=== PATIENT | male | born 2005 | race Caucasian/White ===

== ENCOUNTER 2025-03-31 14:54 | Emergency (ER) | payer OTHER, SELFPAY ==
[2025-03-31 15:01] VITALS: BP 122/58; PULSE 78; RESP 16; TEMP 36.4; O2SAT 97; BMI 32.8
--- NOTE | 2025-03-31 15:01 | ED_ITS ---
HPI - Eye Problem General Chief complaint: Eye Problems Stated complaint: Work- Object Fell Into R Eye- Pain/ Redness Time Seen by Provider: 03/31/25 16:23 History of Present Illness HPI Narrative: Patient is a 19-year-old male presents today with having question foreign object into the eye. 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 There is no gross change in vision patient washed it out still had some foreign body sensation upon arrival in the ED the symptoms seems to have improved. There is no systemic complaints. Patient did not on blood thinners. Tetanus is up-to-date. Related Data Allergies Allergy/AdvReac Type Severity Reaction Status Date / Time No Known Allergies Allergy Verified 03/31/25 15:04 Review of Systems Review of Systems: No fever no chills no systemic complaints PMFSH Past Medical History Attestation statement: The following information was validated with the patient. Social History Social History Smoked in Last 30 Days: No Use of substances other than those prescribed or required for medical reasons: No Advance Directives: No Advance Directives Information Provided: Yes Do you have a plan to hurt others: No Plan Physical Exam Vital Signs: Vital Signs: Last Vital Signs Temp 97.6 F 03/31/25 15:01 Pulse 71 03/31/25 16:26 Resp 16 03/31/25 16:26 BP 134/68 03/31/25 16:26 Pulse Ox 100 03/31/25 16:26 O2 Del Method Room Air 03/31/25 16:26 BMI result Body Mass Index 32.8 Appearance: Alert. Oriented X3. No acute distress. Eyes: Pupils equal, round and reactive to light. sclera was white. There is no corneal abrasion noted on fluorescein staining. Extraocular muscle was intact. Visual acuity was grossly intact. Upon careful examination no foreign object was found. ENT: Pharynx normal. Neck: Normal inspection. Neck supple. No lymph nodes noted. No crepitus CVS: Normal heart rate and rhythm. Pulses normal. Normal S1 and S2 Respiratory: No respiratory distress. Breath sounds normal. No Wheezing. No rales Abdomen: Soft and nontender. No rigidity. No distention. good BS x4 Skin: Skin warm and dry. Normal skin color. Normal skin turgor. Extremities: No lower extremity edema. Neurovascular intact to all extremities. No Lacerations. No Rash Neuro: Oriented X 3. No motor deficit. No sensory deficit. Moving all e xtermities. No slurred speech Course Course Course Narrative: 03/31/25 1502 DANE Tavera This is a Rapid Medical Examination (RME) performed by Ana Lakhani PA-C in triage. Full HPI, ROS, assessment and treatment plan per primary provider in the Main ED. Hx: 19 yo M here for eval of right eye FB. 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 Follow up mental drop into his eye. Attempted to irrigate the eye. Now having irritation. No vision changes. Tetanus up-to-date Plan: Visual acuity, tetracaine, fluorescein eval Medications Administered Discontinued Medications Generic Name Dose Route Start Last Admin Trade Name Freq PRN Reason Stop Dose Admin Fluorescein Sodium 1 strip 03/31/25 15:04 03/31/25 16:32 Fluorescein Sodium Strip EYE-RIGHT 03/31/25 15:05 1 strip ONCE ONE Administration Tetracaine HCl 1 drop 03/31/25 15:04 03/31/25 16:32 Tetracaine Hcl/Pf 0.5% Oph Kori 4 Ml Drops EYE-RIGHT 03/31/25 15:05 1 drop ONCE ONE Administration Medical Decision Making Medical Decision Making MDM Narrative: Question foreign body sensation grossly patient vision intact no distress no metal seen. Cornea is normal there is no evidence of corneal abrasion on staining. Visual acuity is intact. Will discharge patient home close follow-up on an outpatient basis Differential Diagnosis Differential Diagnoses: The differential diagnosis associated with the presentation includes foreign body, corneal abrasion, foreign body sensation Admission/Observation Consideration of admission/observation: Escalation of care including admission/observation considered no need to stay symptoms seems to have resolved Discharge Plan Discharge Clinical Impression: Foreign body sensation, right eye Patient Disposition: Home, Self-Care Instructions: Eye Foreign Body (ED) Referrals: Dave Lambert [Physician, Ophthalmology] - 04/03/25 Print Language: [place]
[2025-03-31 16:26] VITALS: BP 134/68; PULSE 71; RESP 16; O2SAT 100
[2025-03-31] MEDS: Tetracaine HCl/PF 0.5% Oph Sol 4 ML DROPS 1 DROP EYE-RIGHT (16:32)
[2025-03-31] MEDS: Fluorescein Sodium STRIP 1 STRIP EYE-RIGHT (16:32)
[2025-03-31 17:01] VITALS: BP 134/68; PULSE 71; RESP 16; TEMP 36.7; O2SAT 100
== END 2025-03-31 17:03 | disposition home or self-care (01) ==
PROVIDERS: Emergency Provider Emergency Medicine Emergency Medical Services
DX: H57.8A1 Foreign body sensation, right eye (principal); H57.11 Ocular pain, right eye
CPT/HCPCS: 99283; 99284

== ENCOUNTER 2025-08-09 16:47 | Emergency (ER) | payer OTHER, SELFPAY ==
[2025-08-09 16:50] VITALS: BP 151/73; PULSE 89; RESP 18; TEMP 36.6; O2SAT 98; BMI 35.6
--- NOTE | 2025-08-09 16:59 | ED_ITS ---
HPI - General Adult General Chief complaint: Nausea/Vomiting/Diarrhea Stated complaint: Animal Bite Time Seen by Provider: 08/09/25 20:42 Source: patient, RN notes reviewed and old records reviewed Mode of arrival: ambulatory Limitations: no limitations History of Present Illness ED Provider: Hardy EVANS narrative: 19-year-old male with no significant past medical history presents for evaluation of ?spider bite. Patient reports that he was bit on his left mid abdomen by a spider on Thursday He did not see any spider bite him but reports seeing a spider on his bed that day He reports it was initially red and swollen on Thursday. In his not painful in his symptoms have improved dramatically pain Presents to the ER today because he would do it was under diarrhea over the last 2 days He reports feeling dizzy yesterday but this has resolved He denies any abdominal pain, fevers, chills, chest pain, shortness of breath Related Data Allergies Allergy/AdvReac Type Severity Reaction Status Date / Time No Known Allergies Allergy Verified 08/09/25 16:52 Review of Systems 2 Constitutional: Constitutional: Denies body ache(s), Denies chills, Denies fever(s), Denies frequent falls and Denies headache(s) Eyes: Eyes: Denies floaters and Denies irritation ENT: Denies vertigo, Reports dizziness and Denies headache(s) Cardiovascular: Cardiovascular: Denies chest pain and Denies dyspnea on exertion Respiratory: Respiratory: Denies cough and Denies dyspnea on exertion Gastrointestinal: Gastrointestinal: Denies abdominal pain, Denies nausea and Denies vomiting Musculoskeletal: Musculoskeletal: Denies back pain Integumentary/Breasts: Skin/Breast: Reports lesions and Denies rash Neurologic: Denies vertigo, Reports dizziness, Denies frequent falls and Denies headache(s) COUNT INCLUDES THE [facility] Social History Social History Advance Directives: No Advance Directives Information Provided: No Do you have a plan to hurt others: No Plan Physical Exam ED Vital Signs: Vital Signs - 24 hr 08/09/25 16:50 08/09/25 20:42 08/09/25 21:43 Temperature 98 F 97.9 F 97.9 F Pulse Rate 89 80 80 Respiratory Rate 18 16 16 Blood Pressure 151/73 H 139/63 139/63 Pulse Oximetry 98 100 100 Oxygen Delivery Method Room Air Room Air Room Air BMI result Body Mass Index 35.6 Const General: healthy appearing, comfortable, no acute distress, alert and awake Nutritional Appearance: well nourished Orientation/consciousness: patient oriented x3 HENMT Head: Yes normocephalic and Yes atraumatic Eyes Eyelids: Yes eyelids normal Conjunctivae: conjunctivae normal Sclerae: sclerae normal Corneas: corneas normal Pupils: Equal, round and reactive pupils present EOM: EOMs intact bilaterally Neck Neck: Yes full ROM Resp Effort & Inspection: normal respiratory effort, able to speak in complete sentences and not labored GI Other: There was a small macular lesion to the left mid abdomen, no puncture wounds, no surrounding erythema, no fluctuance or induration. Inspection: No distended Palpation (GI): Soft to palpation, not firm, nontender, no guarding and not rigid Auscultation: normoactive bowel sounds Skin General skin exam: elasticity normal Neuro General: patient oriented x3 Cranial nerves: Yes Equal, round and reactive pupils present and Yes Bilaterally intact EOM present Cognition (Neuro): normal cognition Extrem Other: Moving all extremities well without any obvious deformities Course Course Course Narrative: RME: 19 yold male presents to the ED for being bitten by a spider ( in left abdomen) patient did not see spider bite him, but saw insect on bench. Area now on abodmen has no erythema, pus discharge, or tenderness. Secondary complaint is diarrhea and feelin dizzy. Medical Decision Making Medical Decision Making [facility] Narrative: But has a healthy 19-year-old male presenting for evaluation of what he feels is a spider bite in his left mid abdomen. He did not actually witnessed any spider bite him.. This was also 5 days ago when he noticed a lesion. There was no evidence of cellulitis or abscess. The patient came in today complaining of diarrhea which was nonbloody. Denies any recent antibiotic use. His abdominal exam is benign, nontender. He has no leukocytosis or anemia. No fever he is quite well appearing. I think his diarrhea is likely related to a gastroenteritis. I do not see any indication for advanced imaging of his abdomen. The area of the lesion in his left mid abdomen does not appear consistent with cellulitis or abscess. Unclear with the lesions from but there was never any witnessed evidence of a spider biting him. He had a slight elevation of AST and ALT and I suspect this is due to a viral illness. The patient is advised to follow up with your primary doctor for repeat labs in 2-4 weeks. Return precautions were given Differential Diagnosis Differential Diagnoses: The differential diagnosis associated with the presentation includes Gastritis Colitis Viral syndrome Cellulitis Spider bite Lab Data MDM Lab Attestation statement: I reviewed the patient's lab results. As above 08/09/25 19:17 08/09/25 19:17 Labs: Lab Results 08/09/25 Range/Units 19:17 WBC 9.9 (4.8-10.8) X10*3/uL RBC 5.22 (4.60-5.80) X10*6/uL Hgb 14.7 (14.0-18.0) g/dl Hct 45.0 (42.0-52.0) % MCV 86.2 (80.0-98.0) fL MCH 28.2 (27.0-33.0) pg MCHC 32.7 (31.0-36.0) g/dl RDW 12.8 (11.0-16.0) % Plt Count 337 (160-400) X10*3/uL MPV 9.0 L (9.4-12.4) fL Immature Gran % (Auto) 0.5 H (0.0-0.4) % Neut % (Auto) 58.4 (45-73) % Lymph % (Auto) 29.9 (20-40) % Reagan % (Auto) 9.1 (2-11) % Eos % (Auto) 1.7 (0-4) % Baso % (Auto) 0.4 (0-2) % Lymph # (Auto) 3.0 (1.2-4.9) X10*3/uL Reagan # (Auto) 0.9 (0.1-1.2) X10*3/uL Eos # (Auto) 0.2 (0.0-0.4) X10*3/uL Baso # (Auto) 0.0 (0.0-0.2) X10*3/uL Abs Immat Gran (auto) 0.05 H (0.00-0.03) X10*3/uL Absolute Neuts (auto) 5.8 (2.0-8.3) x10*3/uL Absolute Nucleated RBC 0.000 (0.0-0.012) X10*3/uL Nucleated RBC % (auto) 0.0 (0.0-0.2) /100WBC Sodium 142 (135-145) mmol/L Potassium 4.4 (3.3-5.1) mmol/L Chloride 108 (96-108) mmol/L Carbon Dioxide 26 (22-29) mmol/L Anion Gap 12 (12-20) BUN 15 (9-16) mg/dL Creatinine 0.80 (0.5-1.4) mg/dL Estim Creat Clear Calc 175.4 Estimated GFR > 60 Random Glucose 93 (60-115) mg/dL Calcium 10.4 H (8.4-10.2) mg/dL Total Bilirubin 0.6 (0.0-1.0) mg/dL AST 64 H (5-37) U/L ALT 68 H (0-40) U/L Alkaline Phosphatase 75 (39-117) U/L Total Protein 7.8 (6.5-8.0) g/dL Albumin 4.9 (3.5-5.0) g/dL Lipase 21 (8-78) U/L Discharge Plan Discharge Clinical Impression: Diarrhea Patient Disposition: Home, Self-Care Instructions: Acute Diarrhea (ED) Additional Instructions: The [place] on her abdomen does not appear to be infected, there was no evidence of abscess. Your workup in the ER today was reassuring. You had a very slight elevation of your AST and ALT which are liver markers. I suspect that this is due to a viral infection causing your diarrhea. I recommend having repeat blood work to check your liver function in 2-4 weeks Follow up with your primary doctor, return for new or worsening symptoms Interventions: ED Discharge Assessment Last Done: 08/09/25 21:43 Discharge Date/Time: 08/09/25 22:14 Print Language: Azeri
[2025-08-09 19:23] LABS: MANUAL DIFF FLAG NO
[2025-08-09 19:27] LABS: Hematocrit 45.0 % (42.0-52.0); Hemoglobin 14.7 g/dl (14.0-18.0); Imm Gran Abs Auto 0.05 X10*3/uL (0.00-0.03); Imm Gran Pct Auto 0.5 % (0.0-0.4); Lymphocytes Absolute Auto 3.0 X10*3/uL (1.2-4.9); Mean Corpuscular HGB Conc 32.7 g/dl (31.0-36.0); Mean Corpuscular Hemoglobin 28.2 pg (27.0-33.0); Mean Corpuscular Volume 86.2 fL (80.0-98.0); NRBC Abs Auto 0.000 X10*3/uL (0.0-0.012); NRBC Pct Auto 0.0 /100WBC (0.0-0.2); Platelet Count 337 X10*3/uL (160-400); Red Blood Count 5.22 X10*6/uL (4.60-5.80); White Blood Count 9.9 X10*3/uL (4.8-10.8)
[2025-08-09 19:39] LABS: Alanine Aminotransferase 68 U/L (0-40); Albumin Level 4.9 g/dL (3.5-5.0); Alkaline Phosphatase 75 U/L (39-117); Anion Gap 12 (12-20); Aspartate Amino Transferase 64 U/L (5-37); Blood Urea Nitrogen 15 mg/dL (9-16); Calcium 10.4 mg/dL (8.4-10.2); Carbon Dioxide 26 mmol/L (22-29); Chloride 108 mmol/L (96-108); Creatinine Clr Calc Pharmacy 175.4; Estimated Glomerular Filt Rate > 60; Lipase 21 U/L (8-78); Potassium 4.4 mmol/L (3.3-5.1); Sodium 142 mmol/L (135-145); Total Protein 7.8 g/dL (6.5-8.0)
[2025-08-09 20:42] VITALS: BP 139/63; PULSE 80; RESP 16; TEMP 36.6; O2SAT 100
[2025-08-09 21:43] VITALS: BP 139/63; PULSE 80; RESP 16; TEMP 36.6; O2SAT 100
[2025-08-11 09:24] LABS: Lyme Abs Screen <0.90 index
[2025-08-12 00:23] LABS: A. Phagocytphilium DNA,RT-PCR NOT DETECTED (NOT DETECTED); Babesia Microti DNA, RT-PCR NOT DETECTED (NOT DETECTED); Borrelia Miyamotoi,DNA RT-PCR NOT DETECTED (NOT DETECTED); E.Chaffeensis DNA RT-PCR NOT DETECTED (NOT DETECTED); Lyme(Borrelia ssp)DNA RT-PCR NOT DETECTED (NOT DETECTED)
== END 2025-08-09 22:14 | disposition home or self-care (01) ==
PROVIDERS: Physician Assistant; Emergency Provider Emergency Medicine
DX: R19.7 Diarrhea, unspecified (principal); R11.2 Nausea with vomiting, unspecified
CPT/HCPCS: 36415; 80053; 83690; 85025; 86617; 86618; 87468; 87469; 87478; 87484; 87798; 99283